=== PATIENT | female | born 1995 | race Caucasian/White ===

== ENCOUNTER 2017-03-07 01:15 | Emergency (ER) | payer SELFPAY ==
--- NOTE | 2017-03-07 01:48 | ER Document Report ---
ED Fall - General Mode of Arrival: Ambulatory Information source: Patient TRAVEL OUTSIDE OF THE U.S. IN LAST 30 DAYS: No - HPI Occurred: Yesterday Where: Outdoors Context: Tripped Location of injury/pain: Knee - right, Other - chest wall Quality of pain: Achy <GABBY REBOLLEDO - Last Filed: 03/07/17 03:09> <YOSELINBRANDY MARU - Last Filed: 03/07/17 03:50> - General Chief Complaint: Knee Pain Stated Complaint: FALL,KNEE PAIN Time Seen by Provider: 03/07/17 01:34 Notes: Patient is a 21-year-old female that presents to the emergency department today with complaints of right knee pain and chest wall pain secondary to a fall that occurred yesterday. Patient states she was running without shoes yesterday and she tripped and fell when "racing" someone. Patient states she landed on her right knee and her anterior chest. Patient states her right knee feels like "Jell-O". Patient denies any ankle pain, neck pain, hitting her head, or loss of consciousness during the fall. (GABBY REBOLLEDO) - Related data Allergies/Adverse Reactions: No Known Allergies Allergy (Verified 03/07/17 01:19) Home Medications: Current Home Medications No Home Medications 03/07/17 [History] Past Medical History - General Information source: Patient - Social History Smoking Status: Current Every Day Smoker Cigarette use (# per day): Yes Frequency of alcohol use: Social Drug Abuse: None Lives with: Family Family History: Reviewed & Not Pertinent Patient has suicidal ideation: No Patient has homicidal ideation: No - Medical History Medical History: Negative Surgical Hx: Negative <GABBY REBOLLEDO - Last Filed: 03/07/17 03:09> Review of Systems - Review of Systems Constitutional: No symptoms reported EENT: No symptoms reported Cardiovascular: No symptoms reported Respiratory: See HPI, Other - chest wall pain Gastrointestinal: No symptoms reported Genitourinary: No symptoms reported Female Genitourinary: No symptoms reported Musculoskeletal: See HPI, Joint pain - right knee. denies: Neck pain Skin: No symptoms reported Hematologic/Lymphatic: No symptoms reported Neurological/Psychological: denies: Lost consciousness -: Yes All other systems reviewed and negative <GABBY REBOLLEDO - Last Filed: 03/07/17 03:09> Physical Exam <GABBY REBOLLEDO - Last Filed: 03/07/17 03:09> <BRANDY WYATT - Last Filed: 03/07/17 03:50> - Vital signs Vitals: Temp Pulse Resp BP Pulse Ox 99.1 F 110 H 18 148/78 H 98 03/07/17 01:19 03/07/17 01:19 03/07/17 01:19 03/07/17 01:19 03/07/17 01:19 - Notes Notes: Physical Exam: General: Alert, appears well. HEENT: Normocephalic. Atraumatic. PERRLA. Extraocular movements intact. Oropharynx clear. Neck: Supple. Respiratory: No respiratory distress. Anterior chest wall tenderness with palpation. Abdominal: Normal Inspection. No distension. Extremities: Moves all four extremities.Right patella tenderness with palpation , full range of motion, normal strength. Neurological: Normal cognition. AAOx4. Normal speech. Psychological: Normal affect. Normal Mood. Skin: Warm. Dry. Normal color. (GABBY REBOLLEDO) Course <GABBY REBOLLEDO - Last Filed: 03/07/17 03:09> - Diagnostic Test Radiology reviewed: Reports reviewed <BRANDY WYATT - Last Filed: 03/07/17 03:50> - Re-evaluation Re-evalutation: 03/07/17 03:49 Patient presents after a fall from last night. Patient is able to ambulate but is having pain in her right knee. No acute findings on x-ray to suggest fracture. Patient states that she is moving to [place] in 2 days. States that she will follow up with someone there. Patient will be placed in the immobilizer and given crutches. Patient can take [id number] medications at home for pain. Chest wall contusion with no evidence for fracture on chest x -ray. Patient is stable for discharge. Return if any worsening or concerning symptoms. Understands agrees with plan. (BRANDY WYATT) - Vital Signs Vital signs: Temp Pulse Resp BP Pulse Ox 99.1 F 95 20 138/66 H 99 03/07/17 01:19 03/07/17 03:07 03/07/17 03:07 03/07/17 03:07 03/07/17 03:07 Discharge <GABBY REBOLLEDO - Last Filed: 03/07/17 03:09> <BRANDY WYATT - Last Filed: 03/07/17 03:50> - Discharge Clinical Impression: Chest wall contusion Qualifiers: Encounter type: initial encounter Laterality: unspecified laterality Qualified Code(s): S20.219A - Contusion of unspecified front wall of thorax, initial encounter Contusion of knee, right Qualifiers: Encounter type: initial encounter Qualified Code(s): S80.01XA - Contusion of right knee, initial encounter Condition: Stable Disposition: HOME, SELF-CARE Instructions: Use of Crutches ([facility]), Ice & Elevation ([facility]), Suspected Internal Knee Injury ([facility]), Knee Immobilizing Splint ([facility]), Sprained Knee ([facility]) Forms: Return to Work Scribe Attestation: 03/07/17 03:50 I personally performed the services described in the documentation, reviewed and edited the documentation which was dictated to the scribe in my presence, and it accurately records my words and actions. (BRANDY WYATT) Scribe Documentation - Scribe Written by Darinibe:: Armond Obrien, 03/07/2017 0220 acting as scribe for :: Yoselin <GABBY REBOLLEDO - Last Filed: 03/07/17 03:09>
[2017-03-07] MEDS ORDERED: IBUPROFEN 800 MG TABLET PO ONE (01:52)
--- NOTE | 2017-03-07 02:48 | RADIOLOGY REPORT (SQ) ---
EXAM DESCRIPTION: KNEE RIGHT 4 VIEWS COMPLETED DATE/TIME: 03/07/2017 2:39 am REASON FOR STUDY: fall, pain COMPARISON: None. NUMBER OF VIEWS: Four views. TECHNIQUE: AP, lateral, and both oblique radiographic images acquired of the right knee. LIMITATIONS: None. FINDINGS: MINERALIZATION: Normal. BONES: No acute fracture or dislocation. No worrisome bone lesions. JOINT: No effusion. SOFT TISSUES: No soft tissue swelling. No radio-opaque foreign body. OTHER: No other significant finding. IMPRESSION: NEGATIVE STUDY OF THE RIGHT KNEE. NO RADIOGRAPHIC EVIDENCE OF ACUTE INJURY. TECHNICAL DOCUMENTATION: JOB ID: [id number] [employer]- All Rights Reserved
--- NOTE | 2017-03-07 02:49 | RADIOLOGY REPORT (SQ) ---
EXAM DESCRIPTION: CHEST PA/LAT COMPLETED DATE/TIME: 03/07/2017 2:39 am REASON FOR STUDY: fall, pain COMPARISON: None. EXAM PARAMETERS: NUMBER OF VIEWS: two views TECHNIQUE: Digital Frontal and Lateral radiographic views of the chest acquired. RADIATION DOSE: NA LIMITATIONS: none FINDINGS: LUNGS AND PLEURA: No opacities, masses or pneumothorax. No pleural effusion. MEDIASTINUM AND HILAR STRUCTURES: No masses or contour abnormalities. HEART AND VASCULAR STRUCTURES: Heart normal size. No evidence for failure. BONES: No acute findings. HARDWARE: None in the chest. OTHER: No other significant finding. IMPRESSION: NO SIGNIFICANT RADIOGRAPHIC FINDING IN THE CHEST. TECHNICAL DOCUMENTATION: JOB ID: [id number] [employer]- All Rights Reserved
[2017-03-07 03:08] VITALS: BP 138/66
== END 2017-03-07 03:07 | disposition home or self-care (01) ==
LOC: ER 01:15
DX: S20.219A Contusion of unspecified front wall of thorax, initial encounter (principal); S80.01XA Contusion of right knee, initial encounter; M25.561 Pain in right knee; R07.89 Other chest pain; F17.210 Nicotine dependence, cigarettes, uncomplicated; W01.0XXA Fall on same level from slipping, tripping and stumbling without subsequent striking against object, initial encounter
CPT/HCPCS: 99283; 71020; 73564; L1830

== ENCOUNTER 2017-12-03 18:57 | Outpatient (CLI) | payer MEDICAID ==
[2017-12-03 19:47] LABS: APPEARANCE,URINE CLEAR; BILIRUBIN,URINE NEGATIVE (NEGATIVE); COLOR,URINE YELLOW; GLUCOSE, URINE NEGATIVE (NEGATIVE); KETONES,URINE 80 mg/dL (NEGATIVE); LEUKOCYTE ESTERASE,URINE NEGATIVE (NEGATIVE); NITRITE,URINE NEGATIVE (NEGATIVE); PROTEIN,URINE NEGATIVE (NEGATIVE)
[2017-12-03 19:56] LABS: ABSOLUTE BASOPHILS # (AUTO) 0.1 10^3/uL (0.0-0.2); ABSOLUTE EOSINOPHILS # (AUTO) 0.2 10^3/uL (0.0-0.6); ABSOLUTE LYMPHOCYTES (AUTO) 2.3 10^3/uL (0.5-4.7); ABSOLUTE MONOCYTES (AUTO) 0.8 10^3/uL (0.1-1.4); ABSOLUTE NEUT (AUTO) 8.6 10^3/uL (1.7-8.2); BASOPHILS % (AUTO) 0.4 % (0-2); EOSINOPHILS % (AUTO) 2.1 % (0-6); HEMATOCRIT 36.7 % (36.0-47.0); HEMOGLOBIN 12.5 g/dL (12.0-15.5); LYMPHOCYTES % (AUTO) 18.9 % (13-45); MEAN CORPUSCULAR HEMOGLOBIN 29.9 pg (27.0-33.4); MEAN CORPUSCULAR VOLUME 88 fl (80-97); MONOCYTES % (AUTO) 6.9 % (3-13); PLATELET COUNT 201 10^3/uL (150-450); RED BLOOD COUNT 4.17 10^6/uL (3.72-5.28); RED CELL DISTRIBUTION WIDTH 13.8 % (11.5-14.0); SEGMENTED NEUTROPHILS % (AUTO) 71.7 % (42-78); TOTAL CELLS COUNTED % (AUTO) 100 %
[2017-12-03 20:18] LABS: ALANINE AMINOTRANSFERASE 19 U/L (9-52); ALBUMIN 3.6 g/dL (3.5-5.0); ALKALINE PHOSPHATASE 189 U/L (38-126); ANION GAP 11 (5-19); ASPARTATE AMINO TRANSFERASE 15 U/L (14-36); BILIRUBIN,DIRECT 0.3 mg/dL (0.0-0.4); BILIRUBIN,TOTAL 0.7 mg/dL (0.2-1.3); BLOOD UREA NITROGEN 14 mg/dL (7-20); CALCIUM 9.8 mg/dL (8.4-10.2); CARBON DIOXIDE 18 mmol/L (22-30); CHLORIDE 110 mmol/L (98-107); GLUCOSE 67 mg/dL (75-110); POTASSIUM 4.3 mmol/L (3.6-5.0); SODIUM 138.6 mmol/L (137-145); TOTAL PROTEIN 6.4 g/dL (6.3-8.2)
[2017-12-03 20:30] LABS: URINE BARBITURATES SCREEN NEGATIVE; URINE BENZODIAZEPINES SCREEN NEGATIVE; URINE COCAINE SCREEN NEGATIVE; URINE METHADONE SCREEN NEGATIVE; URINE PHENCYCLIDINE SCREEN NEGATIVE
[2017-12-03 20:36] LABS: BACTERIA (WET MOUNT) 4+ BACTERIA SEEN; EPITHELIALS (WET MOUNT) 3+ EPITHELIALS SEEN; RBCS (WET MOUNT) FEW RBCS SEEN; T.VAGINALIS (WET MOUNT) NO TRICHOMONAS SEEN; WBCS (WET MOUNT) 1+ WBCS SEEN; YEAST (WET MOUNT) YEAST SEEN
[2017-12-03 20:37] LABS: URINE AMPHETAMINES SCREEN UNCONFIRMED POSITIVE; URINE MARIJUANA (THC) SCREEN UNCONFIRMED POSITIVE
[2017-12-03 20:47] LABS: RUBELLA IGG ANTIBODY 4.26 IU/mL
[2017-12-03 21:03] LABS: RUBELLA INTERPRETATION NEGATIVE
--- NOTE | 2017-12-03 21:48 | RADIOLOGY REPORT (SQ) ---
EXAM DESCRIPTION: U/S OB LIMITED COMPLETED DATE/TIME: 12/03/2017 9:34 pm REASON FOR STUDY: no care COMPARISON: None. TECHNIQUE: Limited transabdominal grayscale ultrasound for evaluation of specific requested obstetri socorro parameters. LIMITATIONS: None. FINDINGS: CERVICAL LENGTH: 3.1 cm. Closed. VESNA: 11.5 cm. FHR: 131 beats per minute. PRESENTATION: Cephalic. PLACENTA: Posterior. OTHER: No other significant findings. IMPRESSION: LIMITED OBSTETRICAL ULTRASOUND WITH MEASURED PARAMETERS DELINEATED ABOVE. Trimester of : Third trimester - 28 weeks to delivery. TECHNICAL DOCUMENTATION: JOB ID: [id number] [employer]- All Rights Reserved Reading location - IP/workstation name: [email or web address]
--- NOTE | 2017-12-03 21:53 | Non Stress Test Report ---
Non Stress Test Datetime Report Generated by CPN: 12/03/2017 21:53 DEMOGRAPHIC EGA NST: 37.3 INDICATION Indication for Study: Other Indication for Study (NST) Other: LC URINE RESULTS Urine Protein, NST: Negative Urine Ketones - NST: Positive Urine Glucose - NST: Negative Urine Blood - NST: Negative MONITORING Monitor Explained: Monitor Explained; Test Explained; Patient Verbalized Understanding Time on Monitor: 12/03/2017 19:17 Time off Monitor: 12/03/2017 20:11 NST Duration: 54 NST INTERVENTIONS NST Interventions: PO Hydration; Reposition Patient; Other NST Interventions Other: popsicle Physician Notified NST: Dr. Juan BABY A: [id number] BABY A Movement : Present Contraction Frequency : x3 FHR Baseline : 125 Accelerations : 15X15 Decelerations : None Variability : Moderate 6-25bpm NST Review: Meets Criteria for Reactive NST NST Review and Verified By : Bisi Schultz RN NST Results: Reactive NST REPORT Report Trigger: Send Report
[2017-12-03 22:37] LABS: CHLAM PCR NOT DETECTED (NOT DETECT); GON PCR NOT DETECTED (NOT DETECT)
[2017-12-03] MEDS ORDERED: HYDROXYZINE PAMOATE 25 MG CAPSULE PO ONE (22:39)
[2017-12-03] MEDS ORDERED: HYDROXYZINE PAMOATE 50 MG CAPSULE ONE (22:42)
--- NOTE | 2017-12-04 00:24 | RADIOLOGY REPORT (SQ) ---
EXAM DESCRIPTION: US GREATER THAN 14 WEEKS COMPLETED DATE/TME: 12/03/2017 00:00 CLINICAL HISTORY: 22 years Female, efw, full anatomy Comparison: None. TECHNIQUE: Transabdominal LIMITATIONS: None. FINDINGS: EGA is 36w0d with REYNA of 12/31/2017 EFW is 2820g at 69% (Olivier) Cardiac activity: 122-bpm. VESNA: 14.9-cm Placenta: Posterior. No evidence of abruption. No placenta previa. Presentation: Vertex Cervical length: 3.4-cm Anatomic survey: Intracranial features are not well seen including insufficient visualization of the cerebellum and cisterna magna. Visualization of a four chambered heart, three-vessel cord, cord insertion, kidneys including 8 mm prominence of the right renal pelvis, bladder, stomach, spine, and upper/lower extremities. IMPRESSION: 1. Live fetus at 36w0d. 2. Limited anatomic survey.
[2017-12-06 12:38] LABS: HEPATITIS C VIRUS AB <0.1 s/co ratio (0.0-0.9)
[2017-12-06 13:57] LABS: HEPATITS B SURFACE ANTIGEN Negative (Negative)
[2017-12-07 07:21] LABS: VARICELLA ZOSTER IGG AB 1423 index (Immune >16)
== END 2017-12-03 23:56 | disposition home or self-care (01) ==
LOC: LC 18:57
PROVIDERS: ATTEND Obstetrics & Gynecology
DX: Z34.93 Encounter for supervision of normal pregnancy, unspecified, third trimester (principal)
CPT/HCPCS: 59025; 86900; 86901; 36415; 87210; 86850; 85025; 86762; 86592; 80053; 81001; 87081; 87340; 86787; 86701; 80307 ×2; 87491; 87591; 86803; 86804; 76805; 76815; 93976; Q0114; G0480 ×3; J3490 ×2

== ENCOUNTER 2017-12-04 04:34 | Inpatient (IN) | payer MEDICAID ==
[2017-12-04] MEDS ORDERED: NALBUPHINE HCL INJ 10 MG/1 ML AMPULE INJ ONE (05:32)
[2017-12-04] MEDS ORDERED: PROMETHAZINE HCL INJ 25 MG/1 ML VIAL IV ONE (05:32)
[2017-12-04] MEDS ORDERED: RINGERS SOLUTION,LACTATED 300 ML IV ONE (05:45)
[2017-12-04] MEDS ORDERED: NALBUPHINE HCL INJ 10 MG/1 ML AMPULE ONE (05:53)
[2017-12-04] MEDS ORDERED: PROMETHAZINE HCL INJ 25 MG/1 ML VIAL ONE (05:53)
[2017-12-04] MEDS: RINGERS SOLUTION,LACTATED 1,000 ML IV PRN ×2 (06:09→08:09)
[2017-12-04] MEDS ORDERED: BUPIVACAINE HCL 0.25 % INJ/PF (2.5 MG/1 ML) 30 ML VIAL ONE (07:42)
[2017-12-04] MEDS ORDERED: EPHEDRINE SULFATE INJ 50 MG/1 ML AMPULE ONE (07:42)
[2017-12-04] MEDS ORDERED: FENTANYL/BUPIVACAINE/NS/PF 300 MCG/150 ML RTUINJ EPI ONE (07:42)
[2017-12-04] MEDS ORDERED: FENTANYL CITRATE INJ/PF 100 MCG/2 ML AMPUL ONE (07:42)
[2017-12-04] MEDS ORDERED: PHENYLEPHRINE HCL INJ/PF 10 MG/1 ML SDV ONE (07:42)
[2017-12-04] MEDS ORDERED: LIDOCAINE 1.5%/EPINEPHRINE INJ-PF 30 ML SDV ONE (07:43)
--- NOTE | 2017-12-04 07:47 | Admission Physical ---
Datetime Report Generated by CPN: 12/04/2017 07:47 CURRENT ADMISSION Chief Complaint: Uterine Contractions Chief Complaint Other: No care. REYNA based on patient report of 16 wk sono. Plans to give baby up for adoption via [facility]". Indication for Induction: Not Applicable Admit Impression : Term, Intrauterine ; Active Labor Admit Plan: Admit to Unit; Initiate Labor Protocol ALLERGIES Medication Allergies: No Medication Allergies: No Known Allergies (12/03/2017) Latex: No Latex Allergies OBSTETRICAL HISTORY EDC: 12/21/2017 00:00 : 2 Para: 0 Term: 0 : 0 SAB: 0 IAB: 1 Ectopic: 0 Livin Cesareans: 0 VBACs: 0 Multiple Births: 0 Gestational Diabetes: No Rh Sensitization: No Incompetent Cervix: No BOLIVAR: No Infertility: No ART Treatment: No Uterine Anomaly: No IUGR: No Hx Previous C/S: No Macrosomia: No Hx Loss/Stillborn: No PIH: No Hx : No Placenta Previa/Abruption: No Depression/PP Depression: Yes PTL/PROM: No Post Hemorrhage: No Current Procedures: None Obstetrical History Comments: G1: 2014 EAB G2: Current preg, NO PNC, pt. wishes to do safe surrender for baby SEE RECORDS Alcohol: Yes Alcohol Frequency: Occasional Advised to Stop: Yes Alcohol Comments: throughout until 6.5 months non lately Marijuana : Yes Cocaine: No Other Illicit Drugs: Yes Illicit Drug Comments: pt. states she did "ice" one time Cigarettes: Current Everyday Smoker. [id number] Cigarette Frequency: 5 - 10 per day Advised to Stop: Yes MEDICAL HISTORY Diabetes: No Blood Transfusion: No Pulmonary Disease (Asthma, TB): Yes Breast Disease: No Hypertension: No Sped Teacher Surgery: No Heart Disease: No Hosp/Surgery: Yes Autoimmune Disorder: No Anesthetic Complications: No Kidney Disease: No Abnormal Pap Smear: No Neuro/Epilepsy: No Psychiatric Disorders: Yes Other Medical Diseases: No Hepatitis/Liver Disease: No Significant Family History: No Varicosities/Phlebitis: No Trauma/Violence : No Thyroid Dysfunction: No Medical History Comments: bipolar, depression, anxiety-no meds has been on meds in the past at yo ashtma in childhood no meds, D_C at . Suicide at 20 yo has been hospitalized 3 times INFECTIOUS HISTORY Gonorrhea: No Genital Herpes: No Chlamydia: No Tuberculosis: No Syphilis: No Hepatitis: No HIV/AIDS Exposure: No Rash or Viral Illness: No HPV: No PHYSICAL EXAM General: Normal HEENT: Normal Neurologic: Normal Thyroid: Normal Heart: Normal Lungs: Normal Breast: Normal Back: Normal Abdomen: Normal Genitourinary Exam: Normal Extremities: Normal DTRs: Normal Pelvic Type: Adequate Vital Signs: Reviewed; Within Normal Limits VAGINAL EXAM Dilatation: 4 Effacement: 90 Station: -1 MEMBRANES Pooling: Negative Membranes: Intact FETUS A EGA: 37.4 Monitoring: External US FHR- Baseline: 130 Variability: Moderate 6-25bpm Accelerations: 15X15 Decelerations: None FHR Category: Category I Estimated Weight (gm): 3000 Presentation: Vertex Admit Comment: community development planner saw patient during previous labor check last night and advised patient of adoption options for . Patient is emphatic that she does not want to keep baby but she does not want to make phone calls to agencies. Will obtain further help for facilitating patient's wishes via discharge planning. PLANS FOR LABOR AND DELIVERY Labor and Delivery: None Pain Management: Epidural Feeding Preference: n/a INFORMED CONSENT Signature: with User ID: [email or web address]
[2017-12-04] MEDS ORDERED: PENICILLIN G POTASSIUM 5,000,000 UNIT in DEXTROSE 5%-WATER 100 ML IV ONE (07:52)
[2017-12-04] MEDS ORDERED: PENICILLIN G-K 5 MILLION UNIT VIAL ONE ×2 (07:53→13:07)
[2017-12-04] MEDS ORDERED: MORPHINE SULFATE 10 MG/ML INJ ONE (07:59)
[2017-12-04] MEDS ORDERED: OXYTOCIN/NORMAL SALINE 0 UNIT/0 ML RTUINJ ONE (10:23)
[2017-12-04] MEDS ORDERED: OXYTOCIN/NORMAL SALINE 20 UNIT/1,000 ML RTUINJ IV PRN ×2 (10:25→15:25)
[2017-12-04] MEDS ORDERED: LIDOCAINE 1% INJ-PF (10 MG/ML) 30 ML SDV ONE (13:00)
[2017-12-04] MEDS ORDERED: OXYTOCIN/NORMAL SALINE 20 UNIT/1,000 ML RTUINJ ONE (13:00)
[2017-12-04] MEDS ORDERED: MISOPROSTOL 0.2 MG TABLET ONE (13:00)
[2017-12-04] MEDS ORDERED: MEASLES,MUMPS&RUBELLA VACC/PF 0.5 ML VIAL SUBCUT PRN (15:25)
[2017-12-04] MEDS ORDERED: ACETAMINOPHEN WITH CODEINE #3 TABLET PO PRN ×2 (15:25)
[2017-12-04] MEDS ORDERED: DIPH/PERTUSS(ACELL)/TETANUS VAC/PF 0.5 ML SYR (>=10YO) IM PRN (15:25)
[2017-12-04] MEDS ORDERED: BENZOCAINE/MENTHOL AEROSOL SPRAY 56 ML TOP PRN (15:25)
[2017-12-04] MEDS ORDERED: ZOLPIDEM TARTRATE 5 MG TABLET PO PRN (15:25)
[2017-12-04] MEDS ORDERED: DIBUCAINE 1% OINTMENT 28 GM TP PRN (15:25)
[2017-12-04 15:43] LABS: ARTERIAL BLOOD BASE EXCESS -11.8 mmol/L; ARTERIAL BLOOD H2CO3 2.73 mmol/L (1.05-1.35); ARTERIAL BLOOD HCO3 22.2 mmol/L (20-26)
[2017-12-04] MEDS ORDERED: ACETAMINOPHEN WITH CODEINE #3 TABLET ONE (15:46)
[2017-12-04 15:47] LABS: ARTERIAL BLOOD FIO2 CORD BLOOD
[2017-12-04 15:48] LABS: ARTERIAL BLOOD PCO2 90.6 mmHg (35-45); ARTERIAL BLOOD PH 7.01 (7.35-7.45)
[2017-12-04] MEDS ORDERED: DOCUSATE SODIUM 100 MG CAPSULE PO SCH (18:00)
[2017-12-04] MEDS ORDERED: FERROUS SULFATE 325 MG TABLET PO SCH (18:00)
[2017-12-04] MEDS ORDERED: IBUPROFEN 800 MG TABLET PO SCH (22:00)
[2017-12-04] MEDS ORDERED: MEDROXYPROGESTERONE ACET INJ 150 MG/1 ML VIAL IM ONE (23:53)
[2017-12-05] MEDS ORDERED: MEDROXYPROGESTERONE ACET INJ 150 MG/1 ML VIAL IM ONE (00:30)
[2017-12-05 03:04] VITALS: BP 128/85
[2017-12-05] MEDS ORDERED: SENNOSIDES/DOCUSATE 8.6-50 MG 1 EACH TABLET PO SCH (10:00)
[2017-12-05] MEDS ORDERED: PRENATAL VITAMIN W DHA CAPSULE PO SCH (10:00)
--- NOTE | 2017-12-11 08:12 | PDOC DELIVERY SUMMARY ---
Delivery Summary - Maternal Hx : I Hx Para: 0 Hx # Term Pregnancies: 0 Hx # Pregnancies: 0 Hx Total # of Abortions (Sponateous & Elective): 0 Number of Living Children: 0 Gestational Age: 37.4 Risk Factors: No Care - Patient with limited to no care. Desires to give baby up for adoption Risk Factors/Complications Other:: No care Intrapartum: Abruption - at time of delivery Ruptured Membranes: AROM Time of Rupture: 11:26 Fluids: Meconium Stained Fluid Description: moderate amount - Delivery Labor: Augmentation Presentation: Vertex Heart Rate Monitoring: Externally Uterine Contraction Monitoring: External Pattern: Late Decels, Variable Decels Support Person Present: Yes Location: LD Placenta: Abnormal Placenta Description: abruption Number of Vessels (Cord): 3 Nuchal Cord: Yes - nuchael x 1 loose Delivery of Placenta Date: 12/04/17 Delivery of Placenta Time: 15:09 Estimated Blood Loss: 300 Delivery Quantitative Blood Loss (QBL): 300 - Medications Type of Anesthesia:: Epidural - Delivery Personnel MD: GHISLAINE DAVIS
== END 2017-12-05 01:30 | disposition home or self-care (01) | DRG 775 ==
LOC: LC 04:34 → LR 07:50 → 2S 18:38
PROVIDERS: ADMIT Obstetrics & Gynecology; ATTEND Obstetrics & Gynecology
PROC: 10E0XZZ Delivery of Products of Conception, External Approach (ICD-10-PCS; principal; 2017-12-04)
PROC: 4A1HXCZ Monitoring of Products of Conception, Cardiac Rate, External Approach (ICD-10-PCS; 2017-12-04)
DX: O99.334 Smoking (tobacco) complicating childbirth (principal); F17.210 Nicotine dependence, cigarettes, uncomplicated; O99.314 Alcohol use complicating childbirth; O99.344 Other mental disorders complicating childbirth; F31.9 Bipolar disorder, unspecified; F41.9 Anxiety disorder, unspecified; O77.0 Labor and delivery complicated by meconium in amniotic fluid; O99.324 Drug use complicating childbirth; F12.90 Cannabis use, unspecified, uncomplicated; O69.81X0 Labor and delivery complicated by cord around neck, without compression, not applicable or unspecified; O76 Abnormality in fetal heart rate and rhythm complicating labor and delivery; Z37.0 Single live birth; Z3A.37 37 weeks gestation of pregnancy; Z91.5 Personal history of self-harm; Z02.82 Encounter for adoption services
CPT/HCPCS: 36415; 82803; 86850; 86900; 86901; 88307; 90707; 90715; J1050; J2270; J2300; J2370; J2540; J2550; J2590; J3010; J3490

== ENCOUNTER 2017-12-10 09:42 | Emergency (ER) | payer MEDICAID ==
--- NOTE | 2017-12-10 10:13 | ER Document Report ---
ED Medical Screen (RME) - General Chief Complaint: Possible Overdose Stated Complaint: POSSIBLE OVERDOSE Time Seen by Provider: 12/10/17 10:05 Notes: RAPID MEDICAL EVALUATION DISCLOSURE I have seen this patient as part of a Rapid Medical Evaluation and, if applicable, placed any initially appropriate orders. The patient will be seen and fully evaluated, including a full history and physical exam, by a provider ( in Main ED or Fast Track) when a room becomes available. 22-year-old female status post recent within the last week here with complaints of midsternal and epigastric nonradiating chest pain that started earlier this morning with some shortness of breath. She is here because she took 2 pills of Motrin and 1 pill of Aleve p.m. and when she read the bottle, it stated that this could result in overdose and this is the reason she came here. She cannot tell me if the pain is worse with breathing but reports that the pain is not worse with exertion. She denies any prior history of PE/DVT. She denies any extremity swelling. She denies any recent prolonged immobilization. Denies any history of cancer. EXAM CTAB Mildly tachycardic, 110s Minimal inferior sternal TTP No epigastric TTP TRAVEL OUTSIDE OF THE [place].S. IN LAST 30 DAYS: No - Related Data Allergies/Adverse Reactions: No Known Allergies Allergy (Verified 12/10/17 09:44) Past Medical History Renal/ Medical History: Denies: Hx Peritoneal Dialysis Physical Exam - Vital signs Vitals: Temp Pulse Resp BP Pulse Ox 97.8 F 113 H 16 151/93 H 98 12/10/17 10:12/10/17 10:02 12/10/17 10:12/10/17 10:02 12/10/17 10:02 Course - Vital Signs Vital signs: Temp Pulse Resp BP Pulse Ox 97.8 F 113 H 16 151/93 H 98 12/10/17 10:02 12/10/17 10:02 12/10/17 10:02 12/10/17 10:02 12/10/17 10:02
[2017-12-10 11:15] LABS: ABSOLUTE BASOPHILS # (AUTO) 0.1 10^3/uL (0.0-0.2); ABSOLUTE EOSINOPHILS # (AUTO) 0.5 10^3/uL (0.0-0.6); ABSOLUTE LYMPHOCYTES (AUTO) 3.2 10^3/uL (0.5-4.7); ABSOLUTE MONOCYTES (AUTO) 0.9 10^3/uL (0.1-1.4); ABSOLUTE NEUT (AUTO) 8.6 10^3/uL (1.7-8.2); BASOPHILS % (AUTO) 0.7 % (0-2); EOSINOPHILS % (AUTO) 3.5 % (0-6); HEMATOCRIT 37.1 % (36.0-47.0); HEMOGLOBIN 12.7 g/dL (12.0-15.5); LYMPHOCYTES % (AUTO) 24.3 % (13-45); MEAN CORPUSCULAR HEMOGLOBIN 30.1 pg (27.0-33.4); MEAN CORPUSCULAR HGB CONC 34.3 g/dL (32.0-36.0); MEAN CORPUSCULAR VOLUME 88 fl (80-97); MONOCYTES % (AUTO) 6.6 % (3-13); PLATELET COUNT 367 10^3/uL (150-450); RED BLOOD COUNT 4.23 10^6/uL (3.72-5.28); RED CELL DISTRIBUTION WIDTH 14.3 % (11.5-14.0); SEGMENTED NEUTROPHILS % (AUTO) 64.9 % (42-78); TOTAL CELLS COUNTED % (AUTO) 100 %; WHITE BLOOD COUNT 13.2 10^3/uL (4.0-10.5)
[2017-12-10 11:43] LABS: ALANINE AMINOTRANSFERASE 23 U/L (9-52); ALBUMIN 4.1 g/dL (3.5-5.0); ALKALINE PHOSPHATASE 165 U/L (38-126); ANION GAP 13 (5-19); ASPARTATE AMINO TRANSFERASE 26 U/L (14-36); BILIRUBIN,DIRECT 0.4 mg/dL (0.0-0.4); BILIRUBIN,TOTAL 0.5 mg/dL (0.2-1.3); BLOOD UREA NITROGEN 14 mg/dL (7-20); CALCIUM 10.4 mg/dL (8.4-10.2); CARBON DIOXIDE 21 mmol/L (22-30); CHLORIDE 107 mmol/L (98-107); GLUCOSE 91 mg/dL (75-110); LIPASE 115.5 U/L (23-300); POTASSIUM 4.5 mmol/L (3.6-5.0); SODIUM 140.5 mmol/L (137-145); TOTAL PROTEIN 7.4 g/dL (6.3-8.2)
--- NOTE | 2017-12-10 11:51 | RADIOLOGY REPORT (SQ) ---
EXAM DESCRIPTION: CTA CHEST COMPLETED DATE/TIME: 12/10/2017 11:33 am REASON FOR STUDY: recent , now CP tachycardia; eval PE COMPARISON: None. TECHNIQUE: CT scan of the chest performed using helical scanning technique with dynamic intravenous contrast injection. Images reviewed with lung, soft tissue and bone windows. Reconstructed coronal and sagittal MPR images reviewed. Additional 3 dimensional post-processing performed to develop Maximal Intensity Projection images (NE P). All images stored on PACS. All CT scanners at this facility use dose modulation, iterative reconstruction, and/or weight based d osing when appropriate to reduce radiation dose to as low as reasonably achievable (ALARA). [facility]: Dose Right [facility]: CareDose [facility]: Dose Right [facility]: Teradose 4D [facility]: ZUCHEM CONTRAST TYPE AND DOSE: contrast/concentration: Isovue 370.00 mg/ml; Total Contrast Delivered: 71.0 ml; Total Saline Delivered: 79.6 ml Contrast bolus optimized for the pulmonary arteries. Not diagnostic for the aorta. RENAL FUNCTION: Creatinine 0.74 RADIATION DOSE: CT Rad equipment meets quality standard of care and radiation dose reduction techniq ues were employed. CTDIvol: 14.3 - 23.2 mGy. DLP: 590 mGy-cm. . LIMITATIONS: None. FINDINGS: LUNGS AND PLEURA: No masses, infiltrates, or pneumothorax. No pleural effusions or pleura l calcifications. AORTA AND GREAT VESSELS: No aneurysm. Contrast bolus not optimized for the aorta. HEART: No pericardial effusion. No significant coronary artery calcifications. PULMONARY ARTERIES: No emboli visualized in the main pulmonary arteries or the segmental branches. HILAR AND MEDIASTINAL STRUCTURES: No identified masses or abnormal nodes. HARDWARE: None in the chest. UPPER ABDOMEN: No significant findings. Limited exam. THYROID AND OTHER SOFT TISSUES: No masses. No adenopathy. BONES: No acute or significant finding. 3D MIPS: Confirm above findings. OTHER: No other significant finding. IMPRESSION: NORMAL CTA OF THE CHEST. NO PULMONARY EMBOLI. COMMENT: Quality ID # [id number]: Final reports with documentation of one or more dose reduction techniques (e.g., Automated exposure control, adjustment of the mA and/or kV according to patient size, use of iterative reconstruction technique) TECHNICAL DOCUMENTATION: JOB ID: [id number] [employer]- All Rights Reserved Reading location - IP/workstation name: [email or web address]
[2017-12-10] MEDS ORDERED: DIPHENHYDRAMINE HCL 50 MG/ML VIAL IV ONE (12:12)
[2017-12-10] MEDS ORDERED: MAG HYDROX/AL HYDROX/SIMETH SUSP 30 ML UDCUP PO ONE (12:12)
[2017-12-10] MEDS ORDERED: METOCLOPRAMIDE HCL ORAL SOLN 10 MG/10 ML UDCUP PO ONE (12:12)
[2017-12-10] MEDS ORDERED: LIDOCAINE 2% VISCOUS SOLN 20 ML UDCUP PO ONE (12:12)
--- NOTE | 2017-12-10 12:14 | ER Document Report ---
ED General - General Chief Complaint: Possible Overdose Stated Complaint: POSSIBLE OVERDOSE Time Seen by Provider: 12/10/17 10:05 TRAVEL OUTSIDE OF THE [place] IN LAST 30 DAYS: No - HPI Notes: Patient is a 22-year-old female who recently gave earlier this week who presents to the ED complaining of epigastric pain 1 day. Pt states she has felt somewhat SOB, but only with deep inspirations as it causes increased pain to her epigastrum area. Patient states that she primarily came to emergency department because she took 400 mg of Motrin with 500 mg of Aleve within an hour of each other and then she read the bottle which said that she is not supposed to take the medicine together. Patient states that she has been taking Motrin daily prior. She did give earlier this week and give the baby up for adoption. Patient states that she was at a [facility] 2 days ago and did 2 lines of amphetamine and has had trouble sleeping since then. Patient states that she is still able to drink water, but has not wanted to eat many solid foods. She denies any drug allergies. She has not had any melena, hematochezia. Denies any previous DVT/PE, cancer, recent surgery/trauma, prolonged immobilization. Denies any headache, fever, URI, sore throat, palpitations, syncope, cough, shortness of breath, wheeze, dyspnea, nausea/ vomiting/diarrhea, urinary retention, dysuria, hematuria, loss of control of bowel or bladder, numbness/tingling, saddle anesthesia, muscle paralysis/ weakness, or rash. - Related Data Allergies/Adverse Reactions: No Known Allergies Allergy (Verified 12/10/17 09:44) Past Medical History - Social History Smoking Status: Current Every Day Smoker Chew tobacco use (# tins/day): - 15 Frequency of alcohol use: Social Drug Abuse: Marijuana, Methamphetamine Family History: Reviewed & Not Pertinent Patient has suicidal ideation: No Patient has homicidal ideation: No Renal/ Medical History: Denies: Hx Peritoneal Dialysis Review of Systems - Review of Systems -: Yes All other systems reviewed and negative Physical Exam - Vital signs Vitals: Temp Pulse Resp BP Pulse Ox 97.8 F 113 H 16 151/93 H 98 12/10/17 10:02 12/10/17 10:02 12/10/17 10:12/10/17 10:12/10/17 10:02 - Notes Notes: PHYSICAL EXAMINATION: GENERAL: Well-appearing, well-nourished and in no acute distress. HEAD: Atraumatic, normocephalic. EYES: Pupils equal round and reactive to light, extraocular movements intact, sclera anicteric, conjunctiva are normal. ENT: Nares patent and without discharge. oropharynx clear without exudates. No tonsilar hypertrophy or erythema. Moist mucous membranes. NECK: Normal range of motion, supple without lymphadenopathy LUNGS: Breath sounds clear to auscultation bilaterally and equal. No wheezes rales or rhonchi. HEART: Regular rate and rhythm without murmurs, rubs, gallops. ABDOMEN: Soft, nondistended abdomen. No guarding, no rebound. No masses appreciated. Normal bowel sounds present. No CVA tenderness bilaterally. + tenderness to the epigastrum, correlates with pain described. Musculoskeletal: FROM to passive/active. Strength 5+/5. Extremities: No cyanosis, clubbing, or edema b/l. Peripheral pulses 2+. Capillary refill less than 3 seconds. NEUROLOGICAL: Cranial nerves grossly intact. Normal speech, normal gait. PSYCH: Normal mood, normal affect. SKIN: Warm, Dry, normal turgor, no rashes or lesions noted. Course - Re-evaluation Re-evalutation: 12/10/17 12:51 Patient is an afebrile, well-hydrated, 22-year-old female who presents to the ED with epigastric pain, suspect gastritis/GERD. Vitals are acceptable without any significant tachycardia, tachypnea, or hypoxia. PE is otherwise unremarkable. Patient had a heart rate at 80 during examination and at 85 when she had an EKG performed. CBC, CMP, lipase, troponin were otherwise unremarkable. Patient had a CTA ordered through [facility] which was negative. Patient was given a GI cocktail which resolved her symptoms and correlates with previous epigastric tenderness on exam. Patient is otherwise nontoxic appearing and is tolerating p.o. without any difficulties. No other labs or imaging warranted at this time based on H&P. Low suspicion for any ACS, PE, pneumothorax, pericarditis, dissection, respiratory compromise, severe dehydration, sepsis, meningitis, acute abdomen, or other systemic emergent condition at this time. Patient is aware that her condition can change from initial presentation and she needs to monitor symptoms closely and seek medical attention for any acute changes. I will send her home with a prescription for omeprazole and Carafate. Precautions about NSAIDs reviewed as well as drug use. Recommend conservative measures for symptoms. Recheck with your PCM in 3- 5 days. Consider consult with GI. Return to the ED with any worsening/ concerning symptoms otherwise as reviewed in discharge. Patient is in agreement. - Vital Signs Vital signs: Temp Pulse Resp BP Pulse Ox 97.8 F 113 H 16 151/93 H 98 12/10/17 10:02 12/10/17 10:02 12/10/17 10:02 12/10/17 10:02 12/10/17 10:02 - Laboratory Result Diagrams: 12/10/17 10:35 12/10/17 10:35 Laboratory results interpreted by me: 12/10/17 12/10/17 10:35 10:35 WBC 13.2 H RDW 14.3 H Absolute Neutrophils 8.6 H Carbon Dioxide 21 L Calcium 10.4 H Alkaline Phosphatase 165 H Discharge - Discharge Clinical Impression: Epigastric pain Condition: Stable Disposition: HOME, SELF-CARE Instructions: Gastritis ([facility]), Reflux Disease (GERD) ([facility]), Abdominal Pain ([facility] ) Additional Instructions: Maintain adequate fluid and food intake Avoid use of NSAIDs including Aleve, ibuprofen tylenol if needed Monitor for any worsening symptoms Make sure you are staying hydrated enough to urinate and have normal BM's Recheck with your PCM in 3-5 days Consider consult with Gastroenterology for ongoing/worsening symptoms Return to the ED with any worsening symptoms and/or development of fever, headache, chest pain, palpitations, syncope, shortness of breath, trouble breathing, abdominal pain, n/v/d, blood in stool/urine, weakness, or other worsening symptoms that are concerning to you. Prescriptions: Omeprazole 20 mg PO DAILY #30 tablet. Sucralfate [Carafate] 1 gm PO QID PRN #420 ml PRN Reason: Forms: Elevated Blood Pressure, Smoking Cessation Education Referrals: LANE BARNES MD [ACTIVE STAFF] - Follow up as needed
[2017-12-10] MEDS ORDERED: NORMAL SALINE 1000 ML 1,000 ML IV ONE (12:17)
[2017-12-10 13:08] VITALS: BP 145/93
--- NOTE | 2017-12-11 00:23 | EKG REPORT ---
SEVERITY:- NORMAL ECG - SINUS RHYTHM : Confirmed by: Alysha Gotti MD 11-Dec-2017 00:22:07
== END 2017-12-10 13:07 | disposition home or self-care (01) ==
LOC: ER 09:42
DX: O90.9 Complication of the puerperium, unspecified (principal); R10.13 Epigastric pain; O99.335 Smoking (tobacco) complicating the puerperium
CPT/HCPCS: 93005; 99284; 96374; 36415; 83690; 85025; 80053; 84484; 71275; 93010; J1200; J3490 ×3; J7030

== ENCOUNTER 2017-12-19 19:01 | Emergency (ER) | payer MEDICAID ==
--- NOTE | 2017-12-19 19:46 | ER Document Report ---
ED Medical Screen (RME) - General Chief Complaint: Vaginal Bleeding Stated Complaint: VAGINAL BLEEDING Time Seen by Provider: 12/19/17 19:42 Notes: The patient is a 22-year-old female, day 14 from spontaneous vaginal delivery, presents with continued vaginal bleeding is now increasing. She also felt slightly lightheaded earlier today. PE: Abdomen soft and non-tender. RRR. Pelvic exam deferred in RME. I have greeted and performed a rapid initial assessment of this patient. A comprehensive ED assessment and evaluation of the patient, analysis of test results and completion of the medical decision making process will be conducted by additional ED providers. TRAVEL OUTSIDE OF THE [place] IN LAST 30 DAYS: No - Related Data Allergies/Adverse Reactions: No Known Allergies Allergy (Verified 12/19/17 19:02) Past Medical History Renal/ Medical History: Denies: Hx Peritoneal Dialysis Physical Exam - Vital signs Vitals: Temp Pulse Resp BP Pulse Ox 98.7 F 84 16 148/78 H 99 12/19/17 19:10 12/19/17 19:10 12/19/17 19:10 12/19/17 19:10 12/19/17 19:10 Course - Vital Signs Vital signs: Temp Pulse Resp BP Pulse Ox 98.7 F 84 16 148/78 H 99 12/19/17 19:10 12/19/17 19:10 12/19/17 19:10 12/19/17 19:10 12/19/17 19:10
[2017-12-19 20:12] LABS: ABSOLUTE BASOPHILS # (AUTO) 0.1 10^3/uL (0.0-0.2); ABSOLUTE EOSINOPHILS # (AUTO) 0.8 10^3/uL (0.0-0.6); ABSOLUTE LYMPHOCYTES (AUTO) 3.8 10^3/uL (0.5-4.7); ABSOLUTE MONOCYTES (AUTO) 0.6 10^3/uL (0.1-1.4); ABSOLUTE NEUT (AUTO) 4.6 10^3/uL (1.7-8.2); EOSINOPHILS % (AUTO) 7.8 % (0-6); HEMATOCRIT 40.2 % (36.0-47.0); HEMOGLOBIN 13.5 g/dL (12.0-15.5); LYMPHOCYTES % (AUTO) 38.4 % (13-45); MEAN CORPUSCULAR HEMOGLOBIN 29.9 pg (27.0-33.4); MEAN CORPUSCULAR HGB CONC 33.6 g/dL (32.0-36.0); MEAN CORPUSCULAR VOLUME 89 fl (80-97); PLATELET COUNT 327 10^3/uL (150-450); RED BLOOD COUNT 4.53 10^6/uL (3.72-5.28); RED CELL DISTRIBUTION WIDTH 14.3 % (11.5-14.0); SEGMENTED NEUTROPHILS % (AUTO) 46.8 % (42-78); TOTAL CELLS COUNTED % (AUTO) 100 %; WHITE BLOOD COUNT 9.8 10^3/uL (4.0-10.5)
--- NOTE | 2017-12-19 20:18 | ER Document Report ---
ED General - General Chief Complaint: Vaginal Bleeding Stated Complaint: VAGINAL BLEEDING Time Seen by Provider: 12/19/17 19:42 Notes: Patient is a 22-year-old female with a past medical history of polysubstance abuse who presents with 16 days of vaginal bleeding since delivering her child. She notes that is a mild to moderate amount of bright red blood sometimes heavier than others. Nothing improves or worsens his bleeding. She notes an intermittent associated lower abdominal cramping that is mild in nature. She has not yet followed up with [facility] TECHNIC[facility] regarding today's concerns. She denies any lightheadedness, syncope, shortness of breath, or dysuria. TRAVEL OUTSIDE OF THE [place] IN LAST 30 DAYS: No - Related Data Allergies/Adverse Reactions: No Known Allergies Allergy (Verified 12/19/17 19:02) Past Medical History - General Information source: Patient - Social History Smoking Status: Current Every Day Smoker Chew tobacco use (# tins/day): No Frequency of alcohol use: Social Drug Abuse: Methamphetamine Lives with: Spouse/Significant other Family History: Reviewed & Not Pertinent Patient has suicidal ideation: No Patient has homicidal ideation: No Renal/ Medical History: Denies: Hx Peritoneal Dialysis Psychiatric Medical History: Reports: Hx Attention Deficit Hyperactivity Disorder, Hx Bipolar Disorder, Hx Depression - + anxiety Review of Systems - Review of Systems Notes: Constitutional: Negative for fever. HENT: Negative for sore throat. Eyes: Negative for visual changes. Cardiovascular: Negative for chest pain. Respiratory: Negative for shortness of breath. Gastrointestinal: Positive for lower abdominal cramping Genitourinary: Positive for vaginal bleeding Musculoskeletal: Negative for back pain. Skin: Negative for rash. Neurological: Negative for headaches, weakness or numbness. 10 point ROS negative except as marked above and in HPI. Physical Exam - Vital signs Vitals: Temp Pulse Resp BP Pulse Ox 98.7 F 84 16 148/78 H 99 12/19/17 19:10 12/19/17 19:10 12/19/17 19:10 12/19/17 19:10 12/19/17 19:10 Interpretation: Hypertensive Notes: PHYSICAL EXAMINATION: GENERAL: Well-appearing, well-nourished and in no acute distress. HEAD: Atraumatic, normocephalic. EYES: Pupils equal round and reactive to light, extraocular movements intact, sclera anicteric, conjunctiva are normal. ENT: nares patent, oropharynx clear without exudates. Moist mucous membranes. NECK: Normal range of motion, supple without lymphadenopathy LUNGS: Breath sounds clear to auscultation bilaterally and equal. No wheezes rales or rhonchi. HEART: Regular rate and rhythm without murmurs ABDOMEN: Soft, nontender, normoactive bowel sounds. No guarding, no rebound. No masses appreciated. EXTREMITIES: Normal range of motion, no pitting or edema. No cyanosis. NEUROLOGICAL: No focal neurological deficits. Moves all extremities spontaneously and on command. PSYCH: Normal mood, normal affect. SKIN: Warm, Dry, normal turgor, no rashes or lesions noted. Course - Re-evaluation Re-evalutation: 12/19/17 20:16 Patient presents with ongoing vaginal bleeding 14 days which is normal. Her hemoglobin is actually increased from when she was here at the end of November after an overdose on methamphetamine. No focal abdominal tenderness on examination. Labs otherwise unremarkable. I have encouraged routine OB follow- up as already scheduled. I do not clinically suspect endometritis, tubo- ovarian abscess, clinically significant bleed, or any other life-threatening pathology. At this time will discharge with return precautions and follow-up recommendations. Verbal discharge instructions given a the bedside and opportunity for questions given. Medication warnings reviewed. Patient is in agreement with this plan and has verbalized understanding of return precautions and the need for primary care follow-up in the next 24-72 hours. - Vital Signs Vital signs: Temp Pulse Resp BP Pulse Ox 97.4 F 67 18 134/90 H 98 12/19/17 20:44 12/19/17 20:44 12/19/17 20:44 12/19/17 20:44 12/19/17 20:44 - Laboratory Result Diagrams: 12/19/17 19:43 Laboratory results interpreted by me: 12/19/17 19:43 RDW 14.3 H Eosinophils % 7.8 H Absolute Eosinophils 0.8 H Discharge - Discharge Clinical Impression: bleeding Qualifiers: hemorrhage type: unspecified Qualified Code(s): O72.1 - Other immediate hemorrhage Condition: Good Disposition: HOME, SELF-CARE Additional Instructions: It is normal to continue bleeding for up to 1 month after you have a baby. Your blood counts are normal today and actually increased from when you were here in November. For your pain: Take ibuprofen 600 mg and acetaminophen 1000 mg every 6 hours together as needed for pain. Follow-up with your [facility] TECHNICIAN within the next several days. Return immediately if you worsening pain, you began bleeding through more than 2 pads per hour for more than 3 hours, you pass out, have persistent vomiting, develop a fever greater than 100.4F, or any other symptoms that are concerning to you.
[2017-12-19 20:49] VITALS: BP 134/90
== END 2017-12-19 20:44 | disposition home or self-care (01) ==
LOC: ER 19:01
DX: O72.1 Other immediate postpartum hemorrhage (principal)
CPT/HCPCS: 36415; 85025; 99284

== ENCOUNTER 2018-02-02 00:54 | Emergency (ER) | payer MEDICAID ==
[2018-02-02] MEDS ORDERED: LIDOCAINE 1% INJ-PF (10 MG/ML) 30 ML SDV INJ ONE (02:52)
[2018-02-02] MEDS ORDERED: DIPH/PERTUSS(ACELL)/TETANUS VAC/PF 0.5 ML SYR (>=10YO) IM ONE (02:53)
--- NOTE | 2018-02-02 03:34 | RADIOLOGY REPORT (SQ) ---
EXAM DESCRIPTION: XR FOOT 3 OR MORE VIEWS COMPLETED DATE/TME: 02/02/2018 02:46 CLINICAL HISTORY: 22 years, Female, laceration r/o FB COMPARISON: None. FINDINGS: 3 views of the left foot. Possible punctate 1.5 mm radiopaque foreign body at the level of laceration. No acute fracture. Normal osseous mineralization. The tarsals and metatarsals are appropriately aligned. IMPRESSION: 1. There is a possible 1.5 mm radiopaque foreign body at the level of the laceration at the lateral aspect of the foot only seen on AP view. 2011 [employer]- All Rights Reserved
--- NOTE | 2018-02-02 04:07 | ER Document Report ---
ED Wound - General Chief Complaint: Laceration Stated Complaint: FOOT LACERATION Time Seen by Provider: 02/02/18 02:46 Mode of Arrival: Ambulatory Information source: Patient Notes: Patient presents with chief complaint of laceration to her left foot. Patient reports she dropped a wine glass. There is an approximate 2 cm laceration to the lateral aspect near the base of the fifth metatarsal. No active bleeding noted at this time. TRAVEL OUTSIDE OF THE [place] IN LAST 30 DAYS: No - Related Data Allergies/Adverse Reactions: No Known Allergies Allergy (Verified 12/19/17 19:02) Past Medical History - General Information source: Patient - Social History Smoking Status: Never Smoker Frequency of alcohol use: None Drug Abuse: None Lives with: Family Family History: Reviewed & Not Pertinent Renal/ Medical History: Denies: Hx Peritoneal Dialysis Psychiatric Medical History: Reports: Hx Attention Deficit Hyperactivity Disorder, Hx Bipolar Disorder, Hx Depression - + anxiety Surgical Hx: Negative - Immunizations Hx Diphtheria, Pertussis, Tetanus Vaccination: Yes Review of Systems - Review of Systems Constitutional: No symptoms reported EENT: No symptoms reported Cardiovascular: No symptoms reported Respiratory: No symptoms reported Gastrointestinal: No symptoms reported Genitourinary: No symptoms reported Female Genitourinary: No symptoms reported Musculoskeletal: No symptoms reported Skin: See HPI Hematologic/Lymphatic: No symptoms reported Neurological/Psychological: No symptoms reported Physical Exam - Vital signs Vitals: Temp Pulse Resp BP Pulse Ox 98.9 F 93 16 152/77 H 99 02/02/18 01:03 02/02/18 01:03 02/02/18 01:03 02/02/18 01:03 02/02/18 01:03 - Notes Notes: PHYSICAL EXAMINATION: GENERAL: Well-appearing, well-nourished and in no acute distress. HEAD: Atraumatic, normocephalic. EYES: Pupils equal round extraocular movements intact, conjunctiva are normal. ENT: Nares patent NECK: Normal range of motion LUNGS: No respiratory distress Musculoskeletal: Normal range of motion NEUROLOGICAL: Normal speech, normal gait. PSYCH: Normal mood, normal affect. SKIN: Warm, Dry, normal turgor, no rashes or lesions noted. 2 cm laceration to left foot, see HPI. Course - Re-evaluation Re-evalutation: 02/02/18 04:00 Radiology report shows possible radiopaque foreign body. Patient's wound was anesthetized with 1% lidocaine, approximately 200 cc of normal saline was irrigated into the wound. Laceration repaired, see procedure note. - Vital Signs Vital signs: Temp Pulse Resp BP Pulse Ox 98.9 F 93 16 152/77 H 99 02/02/18 01:03 02/02/18 01:03 02/02/18 01:03 02/02/18 01:03 02/02/18 01:03 Procedures - Laceration/Wound Repair left foot Wound length (cm): 2 Wound's Depth, Shape: Superficial Laceration pre-procedure: Sterile PPE donned Anesthetic type: 1% Lidocaine Volume Anesthetic (mLs): 4 Wound explored: Clean Irrigated w/ Saline (mLs): 200 Wound Debrided: Minimal Suture Size/Type: 5:0, Nylon Number of Sutures: 3 Post-procedure NV exam normal: No Complications: No Discharge - Discharge Clinical Impression: Laceration Condition: Stable Disposition: HOME, SELF-CARE Additional Instructions: Laceration Care Your laceration has been sutured to keep the skin edges aligned during healing. The time of suture removal depends on the nature and location of your cut. Please follow the care instructions the doctor has outlined for you and return for further care, according to the schedule you've been given. Keep the wound and dressing clean. Unless you were told otherwise, you may shower daily, blotting the wound dry with a clean, unused towel. At other times, If the dressing gets wet or blood soaked, remove it and blot the wound dry, then reapply a new dressing. Unless you were instructed otherwise, dressings should be changed at least daily. If any signs of infection occur (swelling, redness, increasing tenderness, red streaks, tender lumps in the armpit or groin above the laceration, or fever) , see the doctor immediately. Please return to the emergency department or your primary care provider in 10-14 days for suture removal. Please return earlier if you develop any signs of infection such as increased redness, swelling, foul-smelling drainage or fever. Prescriptions: Cephalexin Monohydrate [Keflex 500 mg Capsule] 500 mg PO Q6H 5 Days #20 capsule
[2018-02-02 08:47] VITALS: BP 135/86
== END 2018-02-02 04:11 | disposition home or self-care (01) ==
LOC: ER 00:54
PROC: 0HQNXZZ Repair Left Foot Skin, External Approach (ICD-10-PCS; principal; 2018-02-02)
DX: S91.312A Laceration without foreign body, left foot, initial encounter (principal); W25.XXXA Contact with sharp glass, initial encounter
CPT/HCPCS: 99283